=== PATIENT | female | born 1985 | race Caucasian/White ===

== ENCOUNTER 2019-09-21 16:49 | Emergency (ER) | payer OTHER ==
--- NOTE | 2019-09-21 17:50 | RADIOLOGY REPORT (SQ) ---
EXAM DESCRIPTION: CHEST SINGLE VIEW IMAGES COMPLETED DATE/TIME: 09/21/2019 5:39 pm REASON FOR STUDY: chest pain; fever COMPARISON: 04/10/2013 EXAM PARAMETERS: NUMBER OF VIEWS: One view. TECHNIQUE: Single frontal radiographic view of the chest acquired. RADIATION DOSE: NA LIMITATIONS: None. FINDINGS: LUNGS AND PLEURA: No opacities, masses or pneumothorax. No pleural effusion. MEDIASTINUM AND HILAR STRUCTURES: No masses. Contour normal. HEART AND VASCULAR STRUCTURES: Heart normal in size. Normal vasculature. BONES: No acute findings. HARDWARE: None in the chest. OTHER: Right Nipple piercing IMPRESSION: NO ACUTE RADIOGRAPHIC FINDING IN THE CHEST. TECHNICAL DOCUMENTATION: JOB ID: [id number] 2010 [employer]- All Rights Reserved Reading location - IP/workstation name: [email or web address]
--- NOTE | 2019-09-21 18:17 | ER Document Report ---
HPI - HPI Time Seen by Provider: 09/21/19 16:52 Pain Level: Denies Context: Patient is a 34-year-old female who presents emergency department with a chief complaint of shortness of breath. Patient states that she has had her shortness of breath for the past 5 days. Patient recently went to [place] during the COVID 19 pandemic. She also reports low-grade fevers with her fever being 100.8. Patient has generally not been feeling well. She does not know if she has any contact with anyone has tested positive for COVID 19. - CONSTITUTIONAL Constitutional: DENIES: Fever, Chills - EENT EENT: DENIES: Sore Throat, Ear Pain, Nasal Drainage-Clear, Nasal Drainage- Purulent, Congestion, Eye problems - NEURO Neurology: DENIES: Headache, Weakness - CARDIOVASCULAR Cardiovascular: REPORTS: Chest pain - RESPIRATORY Respiratory: REPORTS: Trouble Breathing, Coughing - REPRODUCTIVE Reproductive: DENIES: : - MUSCULOSKELETAL Musculoskeletal: DENIES: Extremity pain - DERM Skin Color: Normal Skin Problems: None Past Medical History - General Information source: Patient - Social History Smoking Status: Never Smoker Frequency of alcohol use: Occasional Drug Abuse: None Family History: Reviewed & Not Pertinent Patient has suicidal ideation: No Patient has homicidal ideation: No - Past Medical History Cardiac Medical History: Denies: Hx Coronary Artery Disease, Hx Heart Attack, Hx Hypertension Pulmonary Medical History: Reports: Hx Bronchitis - at age [age] years old Denies: Hx Asthma, Hx COPD, Hx Pneumonia Neurological Medical History: Denies: Hx Cerebrovascular Accident, Hx Seizures Musculoskeletal Medical History: Denies Hx Arthritis Past Surgical History: Reports: Hx Gynecologic Surgery - D&Cx2, Hx Tubal Ligation. Denies: Hx Pacemaker - Immunizations Hx Diphtheria, Pertussis, Tetanus Vaccination: Yes - 2006 [facility] Provider Document - CONSTITUTIONAL Agree With Documented VS: Yes Exam Limitations: No Limitations General Appearance: No Apparent Distress - HEENT HEENT: Atraumatic, Normocephalic, PERRLA. negative: Conjuctival Injection, Pharyngeal Exudate, Pharyngeal Tenderness, Pharyngeal Erythema, Tympanic Membrane Red, Tympanic Membrane Bulging - NECK Neck: Normal Inspection, Supple. negative: Lymphadenopathy-Left, Lymphadenopathy-Right - RESPIRATORY Respiratory: Breath Sounds Normal, No Respiratory Distress - CARDIOVASCULAR Cardiovascular: Regular Rate, Regular Rhythm Pulses: Normal: Radial - MUSCULOSKELETAL/EXTREMETIES Musculoskeletal/Extremeties: FROM - NEURO Level of Consciousness: Awake, Alert, Appropriate Motor/Sensory: No Motor Deficit, No Sensory Deficit - DERM Integumentary: Warm, Dry, No Rash Course - Re-evaluation Re-evalutation: 09/21/19 18:17 Due to the patient's recent travel, the patient will be tested for COVID 19. Chest x-ray and rapid strep are negative. Flu test is negative. Patient is in agreement to self quarantine for 2 weeks until COVID 19 test comes back. - Vital Signs Vital signs: Temp Pulse Resp BP Pulse Ox 98.2 F 85 18 124/78 99 09/21/19 16:49 09/21/19 16:49 09/21/19 16:49 09/21/19 16:49 09/21/19 16:49 Discharge - Discharge Clinical Impression: Shortness of breath Condition: Stable Disposition: HOME, SELF-CARE Additional Instructions: You are seen today in the emergency department for shortness of breath. Due to your recent travel, you are being tested for COVID 19. Your chest x-ray, flu test, and strep test were normal. Please quarantine for 14 days. Take Tylenol as needed for pain. You can take 1000 mg every 6 hours. Use cetirizine and Flonase to help with your allergies. Use the inhaler prescribed to you if needed. Prescriptions: Cetirizine HCl [All Day Allergy] 10 mg PO DAILY #30 tablet Fluticasone Propionate [Flonase Nasal [place] 50 Mcg/[place] 16 gm] 2 sprays NASL DAILY #1 inhaler Albuterol Sulfate [Proair HFA Inhalation Aerosol 8.5 gm MDI] 2 puff IH Q4H PRN #1 mdi PRN Reason: Forms: Return to Work Referrals: CANELO KIM MD [Primary Care Provider] - Follow up as needed
[2019-09-21 18:18] LABS: A TYPE INFLUENZA AG NEGATIVE (NEGATIVE); B INFLUENZA AG NEGATIVE (NEGATIVE)
[2019-09-21 18:58] VITALS: BP 132/91
== END 2019-09-21 18:59 | disposition home or self-care (01) ==
LOC: ER 16:49
DX: R06.02 Shortness of breath (principal); R50.9 Fever, unspecified; R07.9 Chest pain, unspecified; R05 Cough; Z20.828 Contact with and (suspected) exposure to other viral communicable diseases
CPT/HCPCS: 71045; 87070; 87635; 87804; 87880; 99285